=== PATIENT | female | born 1960 | race Caucasian/White ===

== ENCOUNTER 2017-09-19 19:43 | Emergency (ER) | payer MEDICAID ==
[~2017-09-19] VITALS: Ht 5283.9 cm; Wt 55.6 kg
[~2017-09-19 19:43] MED LIST: IBUP-1984 PO
[2017-09-19] MEDS ORDERED: SULF1TAB49 PO (20:19)
[2017-09-19] MEDS ORDERED: PHEN-716 PO (20:19)
[2017-09-19 20:26] LABS: URINE HCG NEGATIVE (NEG)
[2017-09-19 20:29] LABS: CLARITY,URINE CLOUDY (Clear); COLOR,URINE YELLOW (Yellow); GLUCOSE, URINE NEGATIVE (Neg); KETONES,URINE NEGATIVE (Neg); LEUKOCYTE ESTERASE ,URINE MODERATE (Neg); NITRITES, URINE NEGATIVE (Neg); OCCULT BLOOD,URINE LARGE (Neg); PROTEIN,URINE 30 mg/dl (Neg); UROBILINOGEN,URINE 0.2 E.U/dL (0.2-1.0)
[2017-09-19 20:33] LABS: UA COLLECTION TYPE CLN CATCH MIDSTREAM
[2017-09-19 20:34] VITALS: BP 115/69
[2017-09-19 20:39] LABS: BACTERIA,URINE 1+ /HPF (Neg); RBC,URINE 50-100 /HPF (0-2); SQUAMOUS EPITHELIAL CELL,UR FEW /LPF (FEW); WBC,URINE TNTC /HPF (0-4)
== END 2017-09-19 20:34 | disposition home or self-care (01) ==
LOC: ER 19:44
DX: N39.0 Urinary tract infection, site not specified (principal); F12.10 Cannabis abuse, uncomplicated; Z79.899 Other long term (current) drug therapy
CPT/HCPCS: 81001; 81025; 87077; 87088; 87186; 99284

== ENCOUNTER 2018-05-21 22:06 | Emergency (ER) | payer MEDICAID ==
[~2018-05-21] VITALS: Ht 160 cm; Wt 49.0 kg
[~2018-05-21 22:06] MED LIST changes: +PHEN-716 PO
[2018-05-21 22:13] VITALS: BP 110/75
[2018-05-21] MEDS ORDERED: DOXY100C2 PO (22:54)
[2018-05-21] MEDS ORDERED: doxycycline hyclate 100mg tablet.DR PO STA (22:54)
[2018-05-21] MEDS ORDERED: DOXYCYCLINE 100MG CAPSULE PO STA (22:59)
== END 2018-05-21 23:22 | disposition home or self-care (01) ==
LOC: ER 22:06
DX: L03.115 Cellulitis of right lower limb (principal); L03.113 Cellulitis of right upper limb; F15.10 Other stimulant abuse, uncomplicated; F12.90 Cannabis use, unspecified, uncomplicated
CPT/HCPCS: 99283

== ENCOUNTER 2018-11-13 19:43 | Emergency (ER) | payer MEDICAID ==
[~2018-11-13] VITALS: Ht 160 cm; Wt 54.5 kg
[2018-11-13 20:21] VITALS: BP 100/76
[2018-11-13] MEDS ORDERED: CEPH250T PO (22:03)
[2018-11-13] MEDS ORDERED: SULF1TAB49 PO (22:03)
== END 2018-11-13 22:19 | disposition home or self-care (01) ==
LOC: ER 19:43
DX: L03.211 Cellulitis of face (principal); E11.9 Type 2 diabetes mellitus without complications; F12.90 Cannabis use, unspecified, uncomplicated; Z98.890 Other specified postprocedural states
CPT/HCPCS: 99283

== ENCOUNTER 2018-11-17 01:02 | Emergency (ER) | payer MEDICAID ==
[~2018-11-17] VITALS: Ht 160 cm; Wt 54.5 kg
[~2018-11-17 01:02] MED LIST changes: +CEPH250T PO; +SULF1TAB49 PO
[2018-11-17 02:06] VITALS: BP 115/82
== END 2018-11-17 02:17 | disposition home or self-care (01) ==
LOC: ER 01:02
DX: K13.0 Diseases of lips (principal); F12.90 Cannabis use, unspecified, uncomplicated
CPT/HCPCS: 10060; 99283

== ENCOUNTER 2019-11-27 15:17 | Emergency (ER) | payer MEDICAID ==
[~2019-11-27] VITALS: Ht 160 cm; Wt 57.9 kg
[~2019-11-27 15:17] MED LIST changes: -CEPH250T PO; -SULF1TAB49 PO
[2019-11-27 15:20] VITALS: BP 127/74
[2019-11-27] MEDS ORDERED: TETanus/Pertussis (Acell)/Diphther VAC/PF (Tdap-Adult) 0.5ml syringe IMVAC ONE (16:10)
[2019-11-27] MEDS ORDERED: NAPR-996 PO (16:12)
[2019-11-27] MEDS ORDERED: AMOX-115 PO (16:12)
== END 2019-11-27 16:30 | disposition home or self-care (01) ==
LOC: ER 15:18
DX: L03.114 Cellulitis of left upper limb (principal); F12.90 Cannabis use, unspecified, uncomplicated; Z79.899 Other long term (current) drug therapy; W55.01XA Bitten by cat, initial encounter; Y93.89 Activity, other specified; Y92.89 Other specified places as the place of occurrence of the external cause; Y99.8 Other external cause status
CPT/HCPCS: 90471; 90715; 99283

== ENCOUNTER 2020-04-11 16:42 | Emergency (ER) | payer MEDICAID ==
[~2020-04-11] VITALS: Ht 160 cm; Wt 54.5 kg
[~2020-04-11 16:42] MED LIST changes: +NAPR-996 PO
[2020-04-11] MEDS ORDERED: normal saline 1000ML IV soln IVB ONE (17:05)
[2020-04-11] MEDS ORDERED: piperacillin/tazo 3.375gm/50ml 50 ML IV ONE (17:05)
[2020-04-11] MEDS ORDERED: vancomycin/NS 1 GM ADD-VANTAGE 250 ML X 1 DOSE IV ONE (17:15)
[2020-04-11 17:53] LABS: BASOPHILS % (AUTO) 0.5 % (0-1); EOSINOPHILS % (AUTO) 0.3 % (0-6); HEMATOCRIT 44.1 % (35.0-45.0); HEMOGLOBIN 14.8 g/dl (12.0-16.0); LYMPHOCYTES # (AUTO) 1.1 X10'3 (1.1-4.8); LYMPHOCYTES % (AUTO) 13.9 % (21-51); MEAN CORPUSCULAR HEMOGLOBIN 28.9 PG (27.0-31.0); MEAN CORPUSCULAR HGB CONC 33.7 g/dL (33.0-36.5); MEAN PLATELET VOLUME 11.5 FL (7.4-10.4); MONOCYTES # (AUTO) 0.6 X10'3 (0-0.9); MONOCYTES % (AUTO) 7.7 % (2-12); NEUTROPHILS % (AUTO) 77.6 % (42-75); PLATELET COUNT 119 X10'3 (140-440); RED BLOOD COUNT 5.13 X10'6 (4.20-5.60); RED CELL DISTRIBUTION WIDTH 13.4 % (11.5-14.5); WHITE BLOOD COUNT 7.7 X10'3 (4.5-11.0)
[2020-04-11 18:03] LABS: ALANINE AMINOTRANSFERASE 17 U/L (12-78); ALBUMIN 3.6 G/DL (3.4-5.0); ALBUMIN/GLOBULIN RATIO 0.9 (1.1-1.5); ALKALINE PHOSPHATASE 100 IU/L (46-116); ANION GAP 7 (8-16); ASPARTATE AMINO TRANSFERASE 15 U/L (10-37); BILIRUBIN,TOTAL 0.3 MG/DL (0.1-1.0); BLOOD UREA NITROGEN 15 MG/DL (7-18); BUN/CREATININE RATIO 16.7 (6.6-38.0); CALCIUM 9.7 MG/DL (8.5-10.1); CHLORIDE 103 MMOL/L (99-107); GLUCOSE 118 MG/DL (70-104); POTASSIUM 3.8 MMOL/L (3.5-5.1); SODIUM 136 MMOL/L (135-145); TOTAL CARBON DIOXIDE 26.2 MMOL/L (24-32); TOTAL PROTEIN 7.7 G/DL (6.4-8.2); eGFR 64 ML/MIN
[2020-04-11] MEDS ORDERED: ketorolac tromethamine 15mg/ml inj. IV ONE (18:15)
[2020-04-11] MEDS ORDERED: AMOX-422 PO (18:17)
[2020-04-11 18:24] LABS: LARGE PLATELETS FEW; PLATELET ESTIMATE DECREASED
[2020-04-11 20:17] VITALS: BP 120/74
[2020-04-12] MEDS ORDERED: VANCOMYCIN 750MG IV in NS 250 ML IV SCH (06:00)
[2020-04-13] MEDS ORDERED: VANCOMYCIN LEVEL IV ONE (17:30)
== END 2020-04-11 20:18 | disposition home or self-care (01) ==
LOC: ER 16:42
DX: S61.452A Open bite of left hand, initial encounter (principal); L03.114 Cellulitis of left upper limb; R50.9 Fever, unspecified; M79.642 Pain in left hand; M79.89 Other specified soft tissue disorders; W54.0XXA Bitten by dog, initial encounter; Y93.89 Activity, other specified; Y92.89 Other specified places as the place of occurrence of the external cause; Y99.8 Other external cause status
CPT/HCPCS: 36415; 73130; 80053; 83605; 84145; 85025; 87040; 96365; 96366; 96368; 96375; 99285; J1885; J2543; J3370; J7030

== ENCOUNTER 2020-11-11 06:15 | Emergency (ER) | payer MEDICAID ==
[~2020-11-11] VITALS: Ht 160 cm; Wt 54.5 kg
[2020-11-11 06:20] VITALS: BP 133/88
[2020-11-11] MEDS ORDERED: HYDR-3972 PO (06:35)
[2020-11-11] MEDS ORDERED: PENI500T2 PO (06:35)
== END 2020-11-11 06:47 | disposition home or self-care (01) ==
LOC: ER 06:15
DX: K02.9 Dental caries, unspecified (principal); K08.89 Other specified disorders of teeth and supporting structures; E11.9 Type 2 diabetes mellitus without complications; F12.90 Cannabis use, unspecified, uncomplicated; F19.90 Other psychoactive substance use, unspecified, uncomplicated; F17.200 Nicotine dependence, unspecified, uncomplicated; Z90.49 Acquired absence of other specified parts of digestive tract; Z98.890 Other specified postprocedural states; Z79.2 Long term (current) use of antibiotics; Z79.899 Other long term (current) drug therapy
CPT/HCPCS: 99283

== ENCOUNTER 2021-04-20 21:11 | Emergency (ER) | payer MEDICAID ==
[~2021-04-20] VITALS: Ht 160 cm; Wt 69.5 kg
[2021-04-20 21:27] VITALS: BP 122/71
[2021-04-20] MEDS ORDERED: SULF1TAB45 PO (23:09)
[2021-04-20] MEDS ORDERED: CEPH250T PO (23:09)
== END 2021-04-20 23:32 | disposition home or self-care (01) ==
LOC: ER 21:11
DX: L02.423 Furuncle of right upper limb (principal); E11.9 Type 2 diabetes mellitus without complications; F12.90 Cannabis use, unspecified, uncomplicated; Z98.891 History of uterine scar from previous surgery; Z90.49 Acquired absence of other specified parts of digestive tract; Z86.19 Personal history of other infectious and parasitic diseases; Z79.2 Long term (current) use of antibiotics; Z79.899 Other long term (current) drug therapy
CPT/HCPCS: 99283

== ENCOUNTER 2022-01-30 18:47 | Emergency (ER) | payer MEDICAID ==
[~2022-01-30] VITALS: Ht 160 cm; Wt 65.9 kg
[2022-01-30 18:51] VITALS: BP 98/65
[2022-01-30] MEDS ORDERED: sulfamethoxazole/trimethoprim DS (800/160mg) tablet PO ONE (21:10)
[2022-01-30] MEDS ORDERED: SULF1TAB49 PO (21:15)
== END 2022-01-30 21:23 | disposition home or self-care (01) ==
LOC: ER 18:49
DX: L02.512 Cutaneous abscess of left hand (principal); E11.9 Type 2 diabetes mellitus without complications; F12.10 Cannabis abuse, uncomplicated; Z79.899 Other long term (current) drug therapy
CPT/HCPCS: 99283

== ENCOUNTER 2024-09-22 03:37 | Emergency (ER) | payer MEDICAID ==
[~2024-09-22] VITALS: Ht 160 cm; Wt 61.4 kg
[~2024-09-22 03:37] MED LIST changes: +NAPR-1168 PO; -NAPR-996 PO
[2024-09-22] MEDS ORDERED: IBUP-24 PO (05:41)
[2024-09-22] MEDS ORDERED: PENI500T2 PO (05:41)
[2024-09-22] MEDS: penicillin V potassium 500mg tablet PO ONE (05:56)
[2024-09-22] MEDS: ibuprofen tablet 400 MG TABLET PO ONE (05:57)
[2024-09-22 06:05] VITALS: BP 166/108; PULSE 87; RESP 16; TEMP 98; O2SAT 98
== END 2024-09-22 06:09 | disposition home or self-care (01) ==
LOC: ER 03:38
DX: K04.7 Periapical abscess without sinus (principal); E11.9 Type 2 diabetes mellitus without complications; F12.90 Cannabis use, unspecified, uncomplicated; Z90.49 Acquired absence of other specified parts of digestive tract; Z79.899 Other long term (current) drug therapy; Z98.890 Other specified postprocedural states
CPT/HCPCS: 99283